=== PATIENT | male | born 1930 | race Caucasian/White ===

== ENCOUNTER 2018-01-24 09:36 | Observation (INO) | payer MEDICARE, OTHER ==
--- NOTE | 2018-01-24 11:18 | RAD ---
Indication: RIGHT ankle pain post fall. Deformity. Comparison: No relevant prior exams available on the [facility] PACS for comparison. Technique: AP, mortise, and lateral views RIGHT ankle. Report: Oblique fracture through the distal metaphysis of the fibula terminating inferiorly at the level of the ankle mortise. Mild apex medial angulation. Horizontal avulsion fracture of the medial malleolus with approximate 0.8 cm inferior and lateral displacement of the avulsed fragment from the dominant tibia. Associated intra-articular fracture at the posterior lateral tibial plafond. Widening of the ankle mortise medially. Diffuse soft tissue swelling and tenting of the skin at the medial malleolus. No subcutaneous emphysema evident to confirm a compound/open fracture. IMPRESSION: Unstable Britton type B3 fracture pattern.
[2018-01-24] MEDS ORDERED: fentaNYL* 50 MCG/ML 2 ML VIAL (100 MCG VIAL) IV SLOW PU ONE (11:23)
[2018-01-24] MEDS ORDERED: Lidocaine 1% INJ* 10 MG/ML 30 ML SDV ONE (12:43)
--- NOTE | 2018-01-24 12:43 | RAD ---
Indication: Fracture dislocation RIGHT ankle. Britton type B 3 based on radiographs. Comparison: 1039 hours radiographs of the same date. Technique: Noncontrast CT RIGHT ankle. Multiplanar reformation. Report: Britton type B 3 fracture pattern as described on radiographs of the same date. Up to 0.7 cm posterior and 0.5 cm lateral displacement of the fibular fracture fragment as well as foreshortening due to impaction. 0.7 cm inferolateral displacement of the horizontal avulsion fracture of the medial malleolus. Mildly comminuted and impacted intra-articular fracture at the posterior lateral margin of the tibial plafond results in up to 1 cm AP articular surface discontinuity. The tibialis posterior tendon is subluxed into the medial peripheral margin of the coronal oriented fracture at the posterior margin of the tibial plafond. Talocrural joint small lipohemarthrosis with fluid fluid level. No additional fractures evident within the [id number]. Clarke images saved on the [facility] PACS. IMPRESSION: 1. Britton type B3 fracture. 2. The tibialis posterior tendon is subluxed into the medial peripheral margin of the coronal oriented fracture at the posterior margin of the tibial plafond.
--- NOTE | 2018-01-24 15:49 | RAD ---
INDICATION: Right fracture right ankle COMPARISON: January 24, 2018 TECHNIQUE: AP, lateral, and oblique views were obtained. FINDINGS: There is a casted fracture of the right ankle. There is an apparent trimalleolar fracture. There is lateral subluxation of the ankle mortise and tilting. The bony detail is obscured in part by the casting material. IMPRESSION: ANKLE FRACTURES DESCRIBED WITH LATERAL SUBLUXATION OF THE ANKLE MORTISE WITH TILTING
--- NOTE | 2018-01-24 16:28 | RAD ---
INDICATION: Traumatic fracture of the right ankle. COMPARISON: Comparison is made with prior studies from January 24, 2018 including a postreduction study at 1526 hours. TECHNIQUE: 3 views of the right ankle were obtained. FINDINGS: The bones are visualized through a plaster cast limiting much of the bony detail. Again note is made of an oblique intra-articular fracture of the distal fibula. The distal fragment is displaced one cortical diameter lateral relative the proximal fragment. There is a transverse intra-articular fracture of the medial malleolus which is slightly distracted. There is also a fracture of the posterior malleolus. There is mild diffuse widening of the ankle mortise which appears improved from the prior exam. IMPRESSION: TRIMALLEOLAR FRACTURE WITH IMPROVEMENT IN ALIGNMENT AND POSITIONING.
[2018-01-24] MEDS ORDERED: oxyCODONE TAB* 5 MG TAB PO PRN (18:59)
[2018-01-24] MEDS ORDERED: Acetaminophen TAB* 325 MG PO PRN (18:59)
[2018-01-24] MEDS ORDERED: Docusate CAP* 100 MG PO PRN (18:59)
[2018-01-24] MEDS ORDERED: Magnesium Hydroxide LIQ* 30 ML UDC PO PRN (18:59)
[2018-01-24] MEDS ORDERED: Morphine INJ* 2 MG/ML 1 ML CARPUJECT IV PRN (18:59)
[2018-01-24] MEDS ORDERED: oxyCODONE/Acetamin 5/325 MG* TAB PO PRN ×2 (18:59)
[2018-01-24] MEDS ORDERED: diPHENhydraMINE PO* 25 MG PO PRN (18:59)
[2018-01-24] MEDS ORDERED: Triamcinolone 0.5% OINT * 15 GM TUBE TOPICAL PRN (19:10)
[2018-01-24 19:53] LABS: ABS Basophils 0.1 10^3/ul (0-0.2); ABS Eosinophils 0.3 10^3/ul (0-0.6); ABS Lymphocytes 1.4 10^3/ul (1.0-4.8); ABS Monocytes 0.9 10^3/ul (0-0.8); ABS Neutrophils 6.3 10^3/ul (1.5-7.7); ABS Nucleated RBC 0 10^3/ul; Eosinophil % 3.2 % (0-6); Hematocrit 40 % (42-52); Hemoglobin 13.5 g/dl (14.0-18.0); Lymphocyte % 15.3 % (25-47); Mean Corpuscular HGB Conc 34 g/dl (31-36); Mean Corpuscular Hemoglobin 31 pg (27-31); Mean Corpuscular Volume 90 fL (80-94); Mean Platelet Volume 7 um3 (7.4-10.4); Nucleated Red Blood Cells % 0; Platelet Count 204 10^3/ul (150-450); Red Blood Count 4.42 10^6/ul (4.0-5.4); Red Cell Distribution Width 14 % (10.5-15); White Blood Count 8.9 10^3/ul (3.5-10.8)
[2018-01-24 20:08] LABS: INR 0.97 (0.77-1.02)
[2018-01-24 20:14] LABS: EGFR Non-African American 63.6 (>60)
--- NOTE | 2018-01-24 21:26 | HP ---
TWO ADDENDUMS INCLUDED ON THIS REPORT Admission H&P DATE OF SERVICE/ ADMISSION: 01/24/18 ATTENDING PROVIDER: Dr. Urban Harris* (dictated by MASSIEL Verma). PCP: Dr JAMES QUEEN CHIEF COMPLAINT: Right ankle pain. HISTORY OF PRESENT ILLNESS: Mr. Del Toro is an 87-year-old male who presented to the emergency room this morning with right ankle pain and obvious deformity after falling on ice at 9:15 this morning. The patient was walking outside his home to his car when he fell due to slipping on ice. His ankle is painful with movement/ manipulation but is not otherwise. He does not have pain elsewhere and he was unable to get up the fall and he was unable to get up to ambulate. Prior to and after fall he did not have chest pain, shortness of breath, headache, change in vision, or dizziness. He did not hit his head when he fell. He did not have a loss of consciousness. The emergency room has attempted reduction and placed a splint. The patient has never had heart attack or stroke. He takes aggrenox due to a history of amaurosis fugax. He has had surgery in the past which he tolerated well. Please note that he has a family history ( father) of malignant hyperthermia. He has no known history of blood clots. PAST MENIDAL HISTORY: hyperlipidemia, Alzheimers, amaurosis fugax PAST SURGICAL HISTORY: Cataracts, melanoma, lymph node surgery. The patient with no personal history of malignant hyperthermia ALLERGIES: No known drug allergies. FAMILY HISTORY: Father of malignant hyperthermia. SOCIAL HISTORY: Alcohol use, none. Smoking status, former smoker. Substance abuse, none. The patient lives independently at [facility] with his . No aide or nursing care is provided on a regular basis. He generally is active outside of the home and walks without an assistive device. 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 REVIEW OF SYSTEMS: General: Denies fever or chills. Head: No headache. No acute changes in vision or hearing. Heart: No chest pain. No irregular beats. Respiratory: No difficulty breathing. No shortness of breath. Abdomen : No abdominal pain. Musculoskeletal: Right lower extremity pain with splinting, but none currently. : No dysuria. Neuro: No decreased sensation, parasthesias or numbness. Aware of memory loss. Psych: confirms depression. Skin: No reported open fracture. No bruising. No lacerations. No abrasions. Hematology: no history of blood clots. Takes Aggrenox. PHYSICAL EXAM: Vital Signs: Blood pressure 132/53, oxygen 100, pulse rate 55, temperature 96.7. General: The patient is well-appearing. He is in no acute distress. HEENT: Head: Normocephalic, atraumatic. Eyes: EOMI. Vision and hearing is grossly normal. Respiratory: Lungs CTA BL .Regular rate and effort of breathing. Cardio: S1S2. abd: Bowel sounds normoactive. Nontender to palpation, no obvious masses. Musculoskeletal: Right lower extremity is in a splint which was removed to perform a repeat reduction. Ankle was obviously deformed. No open fracture seen. No skin breakdown. Able to wiggle right toes. The patient had no tenderness of bilateral hips ,upper leg or knee. He tolerates flexion and extension at bilateral hips and knees well. Left lower leg and ankle nontender to palpation. Moves upper extremities well without tenderness to palpation. He has no tenderness over midline cervical spine. Neuro: Sensation is intact to light touch throughout the right lower extremity. Skin: no abrasions, lacerations, ecchymosis or skin breakdown over fracture site. Alert and oriented x 3 though does ask the same question several times over, with no memory of previously asking. Vascular: RLE DP 2+, PT 1+ and capillary refill less than two seconds distally. DIAGNOSTIC STUDIES X-rays of the right ankle were obtained and independently interpreted and show a trimalleolar ankle fracture dislocation ASSESSMENT: Right trimalleolar ankle fracture dislocation. PLAN: Resume regular diet. Patient admitted to [facility] as Anur[facility] Cook, Anurag unable to provide bed at long-term facility at this time. Discussed this patient with his PCP Dr James Queen who will see him tomorrow morning. She is in agreement with putting him on heparin 5000 units every 12 hours as well as keeping him on the Aggrenox. Dr Queen kindly assisted in providing patients medical history, medications. a plan for OR Sunday with Dr. Mathis for right ankle fracture ORIF. MASSIEL GALICIA [id number]/CPS #: [id number]/CPS #: [id number]/CPS #: [id number] Attending addendum: I personally saw Mr. Del Toro. I performed the history and physical examination myself. I agree with the above noted findings as outlined by Ayana Marin. 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 We discussed the diagnosis and prognosis at length. We discussed the importance of a closed reduction given the skin tenting medially. We discussed the risks and benefits, and I obtained verbal consent for a hematoma block and closed reduction of the ankle. Under sterile conditionsI injected 5 cc of 1% plain lidocaine into the right tibiotalar joint. There were no complications, and this provided great pain control. I then performed a closed reduction of the ankle and application of a short-leg splint. I ended up having to redo the reduction and splinting a second time as there was still some joint incongruity after the first time. After the second reduction it was well aligned in the splint. He was admitted to our service with a plan for the OR 01/28/[address] Mathis. Urban Harris MD [facility]ITALFritz
--- NOTE | 2018-01-24 21:50 | ED ---
Juan Guillory Julia, scribed for Chevy Barfield MD on 01/24/18 at 1010 . Lower Extremity - HPI Summary HPI Summary: This patient is a 87 year [facility] s/p fall on ice at 09:15 this morning. Patient denies right ankle pain, or injury elsewhere. He states he only felt pain when he attempted to relocate his ankle prior to EMS arrival. - History of Current Complaint Chief Complaint: EDExtremityLower Stated Complaint: POSSIBLE RIGHT ANKLE FRACTURE Time Seen by Provider: 01/24/18 09:58 Hx Obtained From: Patient Mechanism Of Injury: Fall From A Standing Position Onset of Pain: Prior to Arrival Onset/Duration: Resolved Pain Intensity: 0 Pain Scale Used: 0-10 Numeric Location: Is Discrete @ - r ankle Associated Signs And Symptoms: Positive: Negative Able to Bear Weight: No - Allergies/Home Medications Allergies/Adverse Reactions: Allergies Allergy/AdvReac Type Severity Reaction Status Date / Time No Known Allergies Allergy Verified 02/16/13 10:50 Home Medications: Home Medications ARIPiprazole TAB* [Abilify 2 MG TAB*] 1 mg PO DAILY 01/24/18 [History Confirmed 01/24/18] Atorvastatin* [Lipitor*] 10 mg PO DAILY 01/24/18 [History Confirmed 01/24/18] Bupropion XL* [Wellbutrin XL *] 150 mg PO DAILY 01/24/18 [History Confirmed ] Carbamide Peroxide 6.5% OTIC* [DEBROX 6.5% Otic*] 5 - 10 drop BOTH EARS BID [History Confirmed 01/24/18] Cyanocobalamin TAB* [Vitamin B12 TAB*] 1,000 mcg PO DAILY 01/24/18 [History Confirmed 01/24/18] Docusate CAP* [Colace Cap*] 100 mg PO DAILY 01/24/18 [History Confirmed 01/24/18 ] Triamcinolone 0.5% CREAM(NF) [Triamcinolone 0.5% CREAM*] 1 applic TOPICAL BID PRN 01/24/18 [History Confirmed 01/24/18] PMH/Surg Hx/FS Hx/Imm Hx Endocrine/Hematology History: Denies: Hx Diabetes Cardiovascular History: Reports: Hx Angina, Hx Hypercholesterolemia, Hx Hypertension Denies: Hx Coronary Artery Disease, Hx Myocardial Infarction, Hx Pacemaker/ ICD Respiratory History: Denies: Hx Asthma, Hx Chronic Obstructive Pulmonary Disease (COPD) Sensory History: Denies: Hx Hearing Aid Psychiatric History: Denies: Hx Panic Disorder - Surgical History Surgery Procedure, Year, and Place: LYMPH NODE,MELANOMA;CATARACTS BOTH Infectious Disease History: No Infectious Disease History: Denies: Traveled Outside the [place] in Last 30 Days - Social History Alcohol Use: None Substance Use Type: Reports: None Smoking Status (MU): Former Smoker Review of Systems Constitutional: Negative Negative: Myalgia All Other Systems Reviewed And Are Negative: Yes Physical Exam - Summary Physical Exam Summary: Appearance: The patient is well-nourished in no acute distress and in no acute pain. Skin: The skin is warm and dry and skin color reflects adequate perfusion. HEENT: The head is normocephalic and atraumatic. The pupils are equal and reactive. The conjunctivae are clear and without drainage. Nares are patent and without drainage. Mouth reveals moist mucous membranes and the throat is without erythema and exudate. The external ears are intact. The ear canals are patent and without drainage. The tympanic membranes are intact. Neck: the neck is supple with full range of motion and non-tender. There are no carotid bruits. There is no neck vein distension. Respiratory: Chest is non-tender. Lungs are clear to auscultation and breath sounds are symmetrical and equal. Cardiovascular: Heart is regular rate and rhythm. There is no murmur or rub auscultated. There is no peripheral edema and pulses are symmetrical and equal , however R dorsalis pedis pulse is undetectable. Abdomen: The abdomen is soft and non-tender. There are normal bowel sounds heard in all four quadrants and there is no organomegaly palpated. Musculoskeletal: There is no back tenderness noted. The right ankle has obvious deformity. There is skin tinting to the medial aspect of the right ankle. R ankle capillary refill oftwo seconds. Dorsalis pedis pulse is undetectable. Neurological: Patient is alert and oriented to person, place and time. The patient has symmetrical motor strength in all four extremities. Cranial nerves are grossly intact. Deep tendon reflexes are symmetrical and equal in all four extremities. Psychiatric: The patient has an appropriate affect and does not exhibit any anxiety or depression. Triage Information Reviewed: Yes Vital Signs On Initial Exam: Initial Vitals Temp Pulse Resp BP Pulse Ox 96.7 F 51 18 106/53 100 01/24/18 09:42 01/24/18 09:42 01/24/18 09:42 01/24/18 09:42 01/24/18 09:42 Vital Signs Reviewed: Yes Procedures - Procedure Summary Procedure Summary: Right ankle was reduced with good capillary refill and pulses. An XR of the right ankle s/p reduction reveals lateral subluxation of the ankle mortise with tilting. The joint was reduced for a second time and an XR reveals a trimalleolar fracture with improved alignment. - Splinting Location: R ankle Hand-Made Type: orthoglass Pre-Proc Neuro Vasc Exam: abnormal Post-Proc Neuro Vasc Exam: normal - Joint Reduction Joint Reduction Site: ankle (R) Post Joint Reduction Film: joint not reduced - with good pulses and cap refill Diagnostics - Vital Signs Vital Signs Temp Pulse Resp BP Pulse Ox 01/24/18 09:42 96.7 F 51 18 106/53 100 - Laboratory Result Diagrams: 01/24/18 19:45 01/24/18 19:45 Lab Statement: Any lab studies that have been ordered have been reviewed, and results considered in the medical decision making process. - Radiology R Ankle XR Radiology Interpretation Completed By: Radiologist - Unstable Britton type B3 fracture pattern. ED Physician has reviewed this report. R Ankle 2 Radiology Interpretation Completed By: Radiologist - ANKLE FRACTURES DESCRIBED WITH LATERAL SUBLUXATION OF THE ANKLE MORTISE WITH TILTING. ED Physician has reviewed this report. R Ankle 3 Radiology Interpretation Completed By: Radiologist - TRIMALLEOLAR FRACTURE WITH IMPROVEMENT IN ALIGNMENT AND POSITIONING. ED Physician has reviewed this report. - CT R Ankle CT CT Interpretation Completed By: Radiologist - 1. Britton type B3 fracture. 2. The tibialis posterior tendon is subluxed into the medial peripheral margin of the coronal oriented fracture at the posterior margin of the tibial plafond. ED Physician has reviewed this report. Lower Extremity Course/Dx - Course Course Of Treatment: Mr. Del Toro fell on the ice and presented with an obvious ankle deformity. He had some skin tenting medially but good cap refill and xray showed a trimalleolar fracture dislocation. I spoke with ortho who requested that I reduce him and splint him and get a CT. He was given fentanyl for pain and reduced easily. CT showed some remaining subluxation and ortho came and took care of him. Ultimately, they admitted him for surgery tomorrow. - Diagnoses Provider Diagnoses: Closed trimalleolar fracture of ankle, Dislocation of ankle, right, closed - Physician Notifications Discussed Care Of Patient With: Urban Harris - orthopedist Time Discussed With Above Provider: 11:12 Instructed by Provider To: Other - He instructed to reduce and splint ankle, and to get a CT scan to determine if patient will need surgery today. He saw patient in [place] and changed splint. Dr. Harris agrees to admit this patient tonight for surgery tomorrow morning. Discharge - Discharge Plan Condition: Stable Disposition: ADMITTED TO [facility] The documentation as recorded by the Juan lopez Julia accurately reflects the service I personally performed and the decisions made by me, Chevy Barfield MD.
[2018-01-24] MEDS: Dipyridamole/Aspirin 25/200* CAP.ER PO SCH (22:32)
[2018-01-24] MEDS: Heparin VIAL(*) 5000 UNITS/ML VIAL (FIVE THOUSAND) SUBCUT SCH (22:32)
[2018-01-24] MEDS: Magnesium Hydroxide LIQ* 30 ML UDC PO SCH (22:33)
--- NOTE | 2018-01-24 23:41 | HP ---
ADMISSION HISTORY AND PHYSICAL: ADDENDUM: I did talk with Dr. Geno Marroquin, his primary care provider who states that he had amaurosis fugax in 2008, hence being on Aggrenox. PLAN: Dr. Geno Marroquin will come and see him in the morning. She is in agreement with putting him on heparin 5000 units every 12 hours as well as keeping him on the Aggrenox. I did review his medication list with her as well. The only unsurety is that we are still waiting on the medication list from [facility] as whether he takes 80 mg of Prozac daily. I will hold this medication for now. If we found that that he is on it, then we can add it in. MASSIEL GALICIA [id number]/CPS #: [id number] MTDD
[2018-01-25 06:00] LABS: Hematocrit 36 % (42-52); Hemoglobin 12.4 g/dl (14.0-18.0); Mean Platelet Volume 7 um3 (7.4-10.4); Platelet Count 209 10^3/ul (150-450)
[2018-01-25 06:12] LABS: EGFR Non-African American 85.7 (>60)
--- NOTE | 2018-01-25 08:46 | PN ---
Progress Note - Progress Note Date of Service: 01/25/18 SOAP: Subjective: 87 y/o male s/p fall 01/24 with Britton fx R ankle. patient states comfortable at rest, + pain with movement. answered questions re: surgery, driving. VSS , afebrile overnight. Objective: General- Well appearing, NAD, AO resting in bed comfortably, at bedside. MSK- RLE- splint in place, toes pink, warm, + ROM, + blanching. no indurtion , swelling above splint. Vital Signs Temp 98.7 F 01/25/18 07:54 Pulse 68 01/25/18 07:54 Resp 16 01/25/18 08:00 BP 145/59 01/25/18 07:54 Pulse Ox 98 01/25/18 07:54 Intake & Output 01/24/18 01/25/18 01/25/18 18:59 06:59 18:59 Intake Total 500 Output Total 550 Balance -50 Weight 68.039 kg 68.039 kg Intake: Oral 500 Output: Urine 550 Assessment: Stable Britton fx R ankle Plan: - DVT prophylaxis- heparin, d/c aggrenox for surgery - PT/ OT Post-op, return to [facility] - H&H - stable - MEdical clearance by DR. Marroquin - SUrgery w Dr. Mathis on Sunday, NPOp [place] sunday Active Medications Generic Name Dose Route Start Last Admin Trade Name Freq PRN Reason Stop Dose Admin Acetaminophen 650 mg 01/24/18 18:59 Tylenol Tab* PO Q4H PRN FEVER/PAIN Aripiprazole 1 mg 01/25/18 09:00 01/25/18 09:11 Abilify Tab* PO 1 mg DAILY VÍCTOR Administration Atorvastatin Calcium 10 mg 01/25/18 09:00 01/25/18 09:10 Lipitor* PO 10 mg DAILY VÍCTOR Administration Bupropion HCl 150 mg 01/25/18 09:00 01/25/18 09:12 Wellbutrin Xl * PO 150 mg DAILY VÍCTOR Administration Protocol Diphenhydramine HCl 25 mg 01/24/18 18:59 Benadryl Po* PO Q6H PRN itching Docusate Sodium 100 mg 01/24/18 18:59 Colace Cap* PO BID PRN CONSTIPATION Docusate Sodium 100 mg 01/25/18 09:00 01/25/18 09:13 Colace Cap* PO 100 mg DAILY VÍCTOR Administration Donepezil HCl 15 mg 01/25/18 09:00 01/25/18 09:08 Aricept Tab* PO 15 mg DAILY VÍCTOR Administration Heparin Sodium (Porcine) 5,000 units 01/24/18 21:00 01/25/18 09:13 Heparin Vial(*) SUBCUT 5,000 units Q12HR VÍCTOR Administration Lactated Ringer's 1,000 mls @ 100 mls/hr 01/24/18 19:00 01/24/18 22:11 Lactated Ringers 1000 Ml Bag* IV 100 mls/hr PER RATE VÍCTOR Administration Magnesium Hydroxide 30 ml 01/24/18 21:00 01/25/18 10:42 Milk Of Magnesia Liq* PO Not Given BID VÍCTOR Magnesium Hydroxide 30 ml 01/24/18 18:59 Milk Of Magnesia Liq* PO Q6H PRN constipation Morphine Sulfate 2 mg 01/24/18 18:59 Morphine Inj (Syringe)* IV Q2H PRN PAIN - BREAKTHROUGH Oxycodone HCl 10 mg 01/24/18 18:59 Roxycodone Tab* PO Q4H PRN PAIN - SEVERE Oxycodone/Acetaminophen 2 tab 01/24/18 18:59 Percocet 5/325 Tab* PO Q4H PRN PAIN - MODERATE Oxycodone/Acetaminophen 1 tab 01/24/18 18:59 Percocet 5/325 Tab* PO Q4H PRN PAIN - MILD Triamcinolone Acetonide 1 applic 01/24/18 19:10 Triamcinolone 0.5% Oint * TOPICAL BID PRN RASH
[2018-01-25] MEDS ORDERED: Atorvastatin* 10 MG TAB PO SCH (09:00)
[2018-01-25] MEDS ORDERED: Donepezil TAB* 5 MG PO SCH (09:00)
[2018-01-25] MEDS ORDERED: Docusate CAP* 100 MG PO SCH (09:00)
[2018-01-25] MEDS ORDERED: BuPROPion XL* 150 MG TAB.XL PO SCH (09:00)
[2018-01-25] MEDS ORDERED: ARIPiprazole TAB* 2 MG PO SCH (09:00)
[2018-01-25] MEDS: Dipyridamole/Aspirin 25/200* CAP.ER PO SCH (09:04)
[2018-01-25] MEDS: Heparin VIAL(*) 5000 UNITS/ML VIAL (FIVE THOUSAND) SUBCUT SCH (09:13)
[2018-01-25] MEDS: Magnesium Hydroxide LIQ* 30 ML UDC PO SCH (10:42)
[2018-01-25 12:15] VITALS: BP 132/45
--- NOTE | 2018-01-25 14:04 | HP ---
ADMISSION HISTORY AND PHYSICAL: ADDENDUM: HISTORY OF PRESENT ILLNESS: The patient is on Aggrenox, but he does not know why he is taking this. He denies ever having a TIA or stroke. PAST MEDICAL HISTORY: Includes hyperlipidemia and forgetfulness. SOCIAL HISTORY: The patient lives independently at [facility]. He walks outside of his home. He and his do not have medical care within the home. PHYSICAL EXAMINATION RESPIRATORY: Lungs clear to auscultation bilaterally. CARDIO: S1, S2, regular rhythm. ABDOMEN: Soft, nontender without masses. No tenderness. VASCULAR: Right lower extremity with 2+ dorsalis pedis, 1+ posterior tibial pulse. Capillary refill is less than 2 seconds distally. PLAN: The patient was, a third time, splinted at this time with successful reduction, with x-ray reviewed by Dr. Harris. His plan is to take the patient to the OR over the weekend. The patient will be admitted under our service. His primary care is Dr. Geno Marroquin, she will come and see him in the morning. I will discuss with Dr. Geno lang why he is on Aggrenox as well as if she would like me to also add heparin for DVT prophylaxis. I have also requested a medication list from [facility]. MASSIEL GALICIA [id number]/CPS #: [id number] MTDD
== END 2018-01-25 14:25 ==
LOC: ED 09:36 → INTOOBSV 18:59 → SSU 18:59
PROVIDERS: ADMIT Orthopaedic Surgery; ATTEND Internal Medicine Geriatric Medicine
DX: S82.851A Displaced trimalleolar fracture of right lower leg, initial encounter for closed fracture (principal); W00.0XXA Fall on same level due to ice and snow, initial encounter; Y92.9 Unspecified place or not applicable; E78.5 Hyperlipidemia, unspecified; G30.9 Alzheimer's disease, unspecified; F02.80 Dementia in other diseases classified elsewhere, unspecified severity, without behavioral disturbance, psychotic disturbance, mood disturbance, and anxiety; G45.3 Amaurosis fugax; Z79.899 Other long term (current) drug therapy
CPT/HCPCS: 27818; 36415; 80048; 85014; 85018; 85025; 85049; 85610; 85730; 96372; 96374; 99283; A9270-GY; G0378; G8978-GP-CK; G8979-GP-CI; G8987-GO-CL; G8988-GO-CI; J1644; J3010

== ENCOUNTER 2018-01-25 13:50 | Inpatient (IN) | payer MEDICARE ==
[2018-01-26] MEDS ORDERED: diPHENhydraMINE PO* 25 MG PO PRN (00:16)
[2018-01-26] MEDS ORDERED: Docusate CAP* 100 MG PO PRN (00:16)
[2018-01-26] MEDS ORDERED: Magnesium Hydroxide LIQ* 30 ML UDC PO PRN (00:17)
[2018-01-26] MEDS ORDERED: Acetaminophen TAB* 325 MG PO PRN (00:17)
[2018-01-26] MEDS ORDERED: oxyCODONE/Acetamin 5/325 MG* TAB PO PRN ×2 (00:17)
[2018-01-26] MEDS: Atorvastatin* 10 MG TAB PO SCH (08:25)
[2018-01-26] MEDS: Donepezil TAB* 5 MG PO SCH (08:25)
[2018-01-26] MEDS: ARIPiprazole TAB* 2 MG PO SCH (08:25)
[2018-01-26] MEDS: Heparin VIAL(*) 5000 UNITS/ML VIAL (FIVE THOUSAND) SUBCUT SCH ×2 (08:27→21:22)
[2018-01-27] MEDS: ARIPiprazole TAB* 2 MG PO SCH (08:55)
[2018-01-27] MEDS: Donepezil TAB* 5 MG PO SCH (08:56)
[2018-01-27] MEDS: Heparin VIAL(*) 5000 UNITS/ML VIAL (FIVE THOUSAND) SUBCUT SCH ×2 (08:58→21:17)
[2018-01-27] MEDS: Atorvastatin* 10 MG TAB PO SCH (08:58)
[2018-01-27 20:01] VITALS: BP 115/50
[2018-01-28] MEDS ORDERED: NS 0.9% 1000 ML* 1,000 ML IV SCH (06:15)
[2018-01-28] MEDS: ARIPiprazole TAB* 2 MG PO SCH (07:42)
[2018-01-28] MEDS: Atorvastatin* 10 MG TAB PO SCH (07:42)
[2018-01-28] MEDS: Donepezil TAB* 5 MG PO SCH (07:42)
[2018-01-28] MEDS: Heparin VIAL(*) 5000 UNITS/ML VIAL (FIVE THOUSAND) SUBCUT SCH (07:43)
[2018-01-28] MEDS ORDERED: Naloxone* 0.4 MG/ML 1 ML VIAL IV PRN (13:26)
--- NOTE | 2018-03-04 14:31 | DS ---
DISCHARGE SUMMARY: DATE OF ADMISSION: 01/25/2018. DATE OF DISCHARGE: 01/28/2018. DISCHARGE DIAGNOSES: 1. Right ankle dislocated fracture. 2. Alzheimer's disease. 3. History of transient ischemic attack/amaurosis fugax. 4. Hyperlipidemia. 5. Suppression. HISTORY OF PRESENT ILLNESS: Hayden Del Toro is an 87-year-old man admitted with an ankle fracture. Please see the dictated admission note for details of the present illness, past medical history, family history, social and personal history, review of systems, and physical examination. LABORATORY DATA: In the EMR from initial admission. HOSPITAL COURSE: The patient had been admitted initially on 01/24/18. The plan was to have him stay in the hospital over the weekend until surgery could be performed on 01/28/18. He was admitted under status of "[facility] guest." He exhibited some confusion, which was intermittent. He had no complaints other than his ankle pain. He remained in the hospital until 01/28/18 under the guest status until he underwent surgery on 01/28/18 and then he was made an inpatient again. No laboratory was done during this admission. [id number]/[facility] #: [id number] FAITH
== END 2018-01-28 08:19 | disposition short-term general hospital (02) | DRG 563 ==
LOC: INTOOBSV 14:25 → SSU 14:25 → OBSVTOIN 14:29
PROVIDERS: ADMIT Internal Medicine Geriatric Medicine; ATTEND Internal Medicine Geriatric Medicine
PROC: 2W3QX1Z Immobilization of Right Lower Leg using Splint (ICD-10-PCS; principal; 2018-01-25)
PROC: 0QSGXZZ Reposition Right Tibia, External Approach (ICD-10-PCS; 2018-01-25)
DX: S82.851A Displaced trimalleolar fracture of right lower leg, initial encounter for closed fracture (principal); G45.3 Amaurosis fugax; G30.9 Alzheimer's disease, unspecified; E78.5 Hyperlipidemia, unspecified; F02.80 Dementia in other diseases classified elsewhere, unspecified severity, without behavioral disturbance, psychotic disturbance, mood disturbance, and anxiety; F32.9 Major depressive disorder, single episode, unspecified; W00.0XXA Fall on same level due to ice and snow, initial encounter; Y92.008 Other place in unspecified non-institutional (private) residence as the place of occurrence of the external cause; Z84.89 Family history of other specified conditions; Z98.42 Cataract extraction status, left eye; Z98.41 Cataract extraction status, right eye; Z85.820 Personal history of malignant melanoma of skin; Z87.891 Personal history of nicotine dependence
CPT/HCPCS: A9270-GY; J1644

== ENCOUNTER 2018-01-28 08:18 | Inpatient (IN) | payer MEDICARE ==
[2018-01-28] MEDS ORDERED: diPHENhydraMINE PO* 25 MG PO PRN (08:57)
[2018-01-28] MEDS ORDERED: Ondansetron INJ* 2 MG/ML VIAL IV PRN (08:57)
[2018-01-28] MEDS ORDERED: Acetaminophen TAB* 325 MG PO PRN (08:57)
[2018-01-28] MEDS ORDERED: Ondansetron TAB* 4 MG PO PRN (08:57)
[2018-01-28] MEDS ORDERED: Docusate CAP* 100 MG PO PRN (09:03)
[2018-01-28] MEDS ORDERED: Magnesium Hydroxide LIQ* 30 ML UDC PO PRN (09:04)
[2018-01-28] MEDS ORDERED: Midazolam* 1 MG/ML 2 ML VIAL (2 MG) ONE (10:57)
[2018-01-28] MEDS ORDERED: ceFAZolin 2 GM (*##) 2 GM/100 ML BAG USE CEFA2SOL IVPB ONE (11:05)
[2018-01-28] MEDS ORDERED: Phenylephrine INJ* 10 MG/ML 1 ML VIAL (10 MG) ONE (12:08)
[2018-01-28] MEDS ORDERED: EPHEDrine (Pressors)* 50 MG/ML VIAL ONE (12:08)
--- NOTE | 2018-01-28 14:18 | RAD ---
CPT II Codes: 6045F INDICATION: Bimalleolar fracture right ankle, traumatic Fluoroscopic services provided for referring physician. Approximately 3.2 seconds of fluoroscopy time was used. 2 spot images demonstrates internal fixation of bimalleolar fracture. IMPRESSION: Fluoroscopic services provided for referring physician for internal fixation bimalleolar fracture of the right ankle.
[2018-01-28] MEDS: oxyCODONE/Acetamin 5/325 MG* TAB PO PRN ×2 (14:49→18:47)
[2018-01-28] MEDS: D5W 1/2 NS 1000 ML BAG* 1,000 ML IV SCH (15:06)
[2018-01-29] MEDS: D5W 1/2 NS 1000 ML BAG* 1,000 ML IV SCH (01:49)
[2018-01-29] MEDS ORDERED: Heparin VIAL(*) 5000 UNITS/ML VIAL (FIVE THOUSAND) SUBCUT SCH (09:00)
[2018-01-29] MEDS ORDERED: Atorvastatin* 10 MG TAB PO SCH (09:00)
[2018-01-29] MEDS ORDERED: ARIPiprazole TAB* 2 MG PO SCH (09:00)
--- NOTE | 2018-01-29 11:49 | DS ---
DATE OF ADMISSION: 01/24/2018. DATE OF DISCHARGE: 01/29/2018. ATTENDING PROVIDER: Dr. Urban Harris and Dr. Lucius Mathis * (dictated by MASSIEL Verma). PRIMARY CARE PHYSICIAN: Dr. Geno Marroquin who was also following this patient during his stay. HISTORY: Mr. Del Toro is an 87-year-old male who presented to the emergency room on 01/24/2018 with a right ankle fracture after falling on the ice. This seemed to be a mechanical fall. Ankle was reduced and splinted in the emergency room. The patient was admitted as a [facility] Guest and the decision for surgery later within the week was determined. HOSPITAL COURSE: Patient Hayden Del Toro was admitted to [facility] on 01/24/2018 with a right ankle fracture that was reduced in the emergency room by Dr. Urban Harris. He was admitted as a [facility] Guest and he was taken to the operating room by Dr. Lucius Mathis on 01/28/2018 for a right ankle ORIF which was completed without complication. Postoperative day one, the patient is feeling well. He denies any chest pain or shortness of breath. He denies any dizziness. He denies any right ankle pain. His only concern is being able to get out of bed on his own which he does not feel able to do at this time. On exam, the patient is wearing a splint on this right leg. He is able to wiggle his toes distally. Capillary refill is less than two seconds. He has sensation intake distally. There is no erythema proximal to distal to the splint. He is able to flex and extend at the knee, aside from the complaint that the splint is quite heavy. Labs on January 25, hemoglobin 12.4, hematocrit 36. Vital signs on January 29, temperature 98.5, pulse 75, respiratory rate 16, oxygen saturation 98, blood pressure 134/51. The patient seemed to be medically and orthopedically stable for discharge home. He will be discharged to [facility]. DISCHARGE MEDICATIONS: The patient will resume all home medications, including Aggrenox. New medications include: 1. Tylenol 325 mg p.o. q.6 hours prn for pain or fever, not to exceed 4,000 mg per day from all sources. 2. Docusate 100 mg p.o. b.i.d. prn constipation. 3. Percocet 5/325 one to two tabs every 4 hours as needed for pain, max daily dose of 8. DISCHARGE PLAN: The patient will be nonweightbearing on the right lower extremity. He will keep the splint clean, dry, and intact. He will call the Orthopedic office for any increased drainage, redness, increased pain or fever, and go to the emergency room with shortness of breath or chest pain. His diet will be his regular diet which he may resume at this time. Increase fiber and fluids to prevent constipation. Take stool softeners. Call the office if no bowel motion within 48 hours. Pain control with Percocet 5/325 one to two tabs every four to six hours, max of eight tabs per day. Restart your home medications, including Aggrenox. Follow-up in our office with Dr. Mathis in one week, sooner with any questions or concerns. Call for an appointment. MASSIEL GALICIA [id number]/[facility] #: [id number] FAITH
[2018-01-29 12:25] VITALS: BP 135/47
--- NOTE | 2018-01-29 13:03 | PN ---
Progress Note - Progress Note Date of Service: 01/29/18 SOAP: Subjective: []Patient seen OOB in chair with his present. He has no pain and no numbness of his RLE. He denies CP, SOB, dizziness or nausea. His only concern is ability to get out of bed on his own, due to weight of splint on right leg. Objective: [] Vital Signs Temp 98.2 F 01/29/18 11:49 Pulse 82 01/29/18 11:49 Resp 16 01/29/18 11:49 BP 135/47 01/29/18 11:49 Pulse Ox 99 01/29/18 11:49 Intake & Output 01/28/18 01/29/18 01/29/18 18:59 06:59 18:59 Intake Total 1227 1448 320 Output Total 300 725 200 Balance 927 723 120 Weight 150 lb Intake: IV Fluids 650 988 D5W 1/2 NS 988 LR 650 IVPB 337 NS (0.9%) 337 Oral 240 460 320 Output: Urine 300 725 200 Other: # Bowel Movements 1 Estimated Stool Amount Large General: Well appearing, NAD RLE: Splint CDI. Toes with sensation intact to light touch, capillary refill less than two seconds distally, able to wiggle toes. No erythema proximally. Thigh is soft and nontender. LLE: Calf supple and nontender without erythema or edema. Assessment: []SP ORIF right ankle Plan: []NWB RLE Restart home medications including aggrenox Follow up with Dr Mathis within 7-10 days
--- NOTE | 2018-01-29 14:13 | OP ---
DATE OF OPERATION: 01/28/18 - ROOM #337 DATE OF : 34 SURGEON: Lucius Mathis MD. PRESIDENT CEO & FOUNDER: MASSIEL Ivey. PRE-OP DIAGNOSIS: Right trimalleolar ankle fracture. POST-OP DIAGNOSIS: Right trimalleolar ankle fracture. OPERATIVE PROCEDURE: Open reduction and internal fixation right trimalleolar ankle fracture. DESCRIPTION OF PROCEDURE: The patient was taken to the operating room with spinal anesthetic and rolled on his left lateral decubitus side. We made an extensile incision posterior to the peroneals so that we could approach the posterior ankle recess. The peroneal tendons were reflected laterally and anteriorly to allow visualization of the back aspect of the fibula which was plated. After anatomic reduction with a crab claw clamp with an 8-hole 3.5-mm recon plate. The lateral view showed the posterior malleolar fragment well reduced, so with my thumb pushing it down into an anatomic position as well. A posterior to anterior lag screw was placed with a 3.5 cortical screw with a washer. This wound then was serially irrigated thoroughly and closed with Vicryl subcu and souleymane for the skin. We then rolled him to a supine position where a 3-cm longitudinal incision was made over the medial malleolus. The medial malleolus was manipulated into a reduced position, held with a point reduction clamp while a 4.0 mm cannulated screw was driven across the fracture. This was a 40-mm long screw. Good alignment was obtained and verified with C-arm. We then closed this medial wound with Vicryl and souleymane and a compression dressing. Plaster splint applied. [id number]/[facility] #: [id number] MTDD
[2018-01-29] MEDS ORDERED: Donepezil TAB* 5 MG PO SCH (21:00)
--- NOTE | 2018-02-03 00:50 | HP ---
HISTORY AND PHYSICAL: DATE OF ADMISSION: 01/28/18 ATTENDING PROVIDER: Dr. Urban Harris. * (DICTATED BY MASSIEL MALIK) PRIMARY CARE PHYSICIAN: Dr. Geno Marroquin. CHIEF COMPLAINT: Trimalleolar ankle fracture with dislocation. HISTORY OF PRESENT ILLNESS: The patient is a pleasant 87-year-old gentleman who was recently admitted to [facility] under [facility] guest status on 01/24/18. Please see full H and P dictated by Ayana Marin on this date with regards to the patient's full history. In brief, the patient was seen in the emergency room on 01/25/18 after falling and was noted on x-rays to have a trimalleolar fracture. He is a resident at the [facility] and was admitted to [facility] on a guest status as they were unable to provide care for him at the [facility]. He is to undergo ORIF by Dr. Harris on 01/28/18. PAST MEDICAL HISTORY: 1. Hyperlipidemia. 2. Alzheimer's. 3. Amaurosis fugax. PAST SURGICAL HISTORY: 1. Cataracts. 2. Melanoma resection. 3. Lymph node surgery. ALLERGIES: No known drug allergies. FAMILY HISTORY: Father of malignant hyperthermia. PHYSICAL EXAMINATION GENERAL: Well appearing, no acute distress, alert and oriented, lying comfortably in bed with no acute distress. VITAL SIGNS: Temperature 99.5, pulse rate 80, respirations 18, oxygen saturation 100% on room air, blood pressure 157/66. MUSCULOSKELETAL: Right ankle in splint without discomfort and is unable to move toes. Toes are warm and pink. No induration noted above splint. ASSESSMENT: Trimalleolar fracture. PLAN: The patient is to undergo ORIF by Dr. Harris on 01/28/18. He is being followed by his primary care doctor, Geno Marroquin. We are holding his Aggrenox currently for bleeding risk and we will restart this per Dr. Harris's recommendations. The patient had no further questions or concerns with regards to this procedure. MASSIEL MALIK [id number]/[facility] #: [id number] [facility]
== END 2018-01-29 13:50 | DRG 493 ==
LOC: SSU 08:19
PROVIDERS: ADMIT Orthopaedic Surgery; ATTEND Orthopaedic Surgery
PROC: 0QSG04Z Reposition Right Tibia with Internal Fixation Device, Open Approach (ICD-10-PCS; principal; 2018-01-28 12:00)
DX: S82.851A Displaced trimalleolar fracture of right lower leg, initial encounter for closed fracture (principal); G45.3 Amaurosis fugax; G30.9 Alzheimer's disease, unspecified; E53.8 Deficiency of other specified B group vitamins; F02.80 Dementia in other diseases classified elsewhere, unspecified severity, without behavioral disturbance, psychotic disturbance, mood disturbance, and anxiety; G31.84 Mild cognitive impairment of uncertain or unknown etiology; W00.0XXA Fall on same level due to ice and snow, initial encounter; L30.9 Dermatitis, unspecified; L81.9 Disorder of pigmentation, unspecified; F32.9 Major depressive disorder, single episode, unspecified; M54.5 Low back pain; L40.9 Psoriasis, unspecified; E78.00 Pure hypercholesterolemia, unspecified; I89.0 Lymphedema, not elsewhere classified; H91.93 Unspecified hearing loss, bilateral; I49.3 Ventricular premature depolarization; N52.9 Male erectile dysfunction, unspecified; Y92.9 Unspecified place or not applicable; Z79.01 Long term (current) use of anticoagulants; Z79.899 Other long term (current) drug therapy; E78.5 Hyperlipidemia, unspecified
CPT/HCPCS: 76000; A9270-GY; C1713; C1776; G8978-GP-CL; G8979-GP-CI; J1644; J2250

== ENCOUNTER 2018-09-11 15:56 | Inpatient (IN) | payer MEDICARE ==
--- NOTE | 2018-09-11 17:28 | RAD ---
Indication: Pain post fall. Visible deformity at the level of the LEFT humerus. Comparison: February 13, 2014 Technique: Sitting AP chest Report: No focal pulmonary lesion, compelling alveolar consolidation, pleural effusion, pneumothorax. Upper normal heart size. Unremarkable central pulmonary vasculature. Fracture of the LEFT humerus partially visualized. IMPRESSION: #. No evidence for acute intrathoracic disease. #. Fracture of the LEFT humerus; refer to dedicated humerus report for full description.
--- NOTE | 2018-09-11 17:31 | RAD ---
Indication: Fall with visible deformity of the LEFT upper arm. Comparison: No relevant prior exams available on the [facility] PACS for comparison. Technique: AP and lateral views LEFT humerus. AP and scapular Y views of the LEFT shoulder. REPORT AND IMPRESSION: #. Comminuted segmental fracture of the LEFT humerus extending from the surgical neck through the distal diaphysis with significant displacement and approximate 45 degrees apex lateral angulation. Foreshortening of the upper arm and fusiform soft tissue swelling. No subcutaneous emphysema evident. #. The humeral head remains located at the glenoid fossa. Normal acromioclavicular joint alignment. 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
--- NOTE | 2018-09-11 17:31 | RAD ---
Indication: Fall with visible deformity of the LEFT upper arm. Comparison: No relevant prior exams available on the [facility] PACS for comparison. Technique: AP and lateral views LEFT humerus. AP and scapular Y views of the LEFT shoulder. REPORT AND IMPRESSION: #. Comminuted segmental fracture of the LEFT humerus extending from the surgical neck through the distal diaphysis with significant displacement and approximate 45 degrees apex lateral angulation. Foreshortening of the upper arm and fusiform soft tissue swelling. No subcutaneous emphysema evident. #. The humeral head remains located at the glenoid fossa. Normal acromioclavicular joint alignment. 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
--- NOTE | 2018-09-11 17:33 | RAD ---
Indication: Fall. LEFT humerus fracture. Comparison: No relevant prior exams available on the [facility] PACS for comparison. Technique: AP pelvis. Report: Normal alignment of the hips as well as the sacroiliac joints and pubic symphysis in the AP projection. No pelvic fracture evident. Unremarkable soft tissue contours. IMPRESSION: #. No radiographic evidence for pelvic fracture.
--- NOTE | 2018-09-11 17:44 | RAD ---
Indication: Fall. LEFT humerus fracture. Comparison: No relevant prior exams available on the [facility] PACS for comparison. Technique: Noncontrast CT vertex of skull through foramen magnum. Report: Moderately severe prominence of the cerebral sulci and moderate prominence of the cerebellar fissures reflecting atrophy. Unremarkable ventricles and basal cisterns. Negative for lau matter white matter obscuration, intra or extra-axial hemorrhage, or mass effect. Unremarkable orbital contents. Negative for calvarial or skull base fracture. Negative for scalp hematoma. IMPRESSION: #. No CT evidence for traumatic brain injury. #. Involutional change.
--- NOTE | 2018-09-11 17:48 | RAD ---
INDICATION: Fall. LEFT humerus fracture. COMPARISON: No relevant prior exams available on the [facility] PACS for comparison. TECHNIQUE: Multidetector CT images foramen magnum to lung apices without contrast. Multiplanar reformation. REPORT: Normal vertebral alignment accounting for exam positioning without spondylolisthesis or subluxation at any level. Negative for cervical vertebral body or posterior element fracture. Negative for paravertebral hematoma. 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 Uncinate process spurring and facet joint osteoarthritis results in moderately severe to severe bilateral foraminal stenosis in the same distribution. IMPRESSION: #. No CT evidence for traumatic cervical spine injury.
--- NOTE | 2018-09-11 17:51 | ED ---
Adult Trauma - HPI Summary HPI Summary: Patient is an 88-year-old male who presents to the emergency department for a left arm injury after a mechanical fall that happened just prior to arrival. Patient states he tripped on the rug and fell forward. He did strike his face but denies LOC. She denies headache, neck pain, chest pain, shortness of breath , abdominal pain. His only complaint is pain to his left arm. He does have baseline of mild dementia. Patient's states he is at his baseline. He lives at home with his . Symptoms are moderate in severity. Patient denies numbness, tingling to left arm. Movement makes symptoms worse. Rest makes symptoms better. - History of Current Complaint Chief Complaint: EDShoulderClaChela Stated Complaint: FALL Time Seen by Provider: 09/11/18 16:35 Hx Obtained From: Patient, Family/Digital Production Operator Pain Intensity: 2 - Additional Pertinent History Primary Care Physician: [id number] - Allergy/Home Medications Allergies/Adverse Reactions: Allergies Allergy/AdvReac Type Severity Reaction Status Date / Time gentamicin [From Garamycin] Allergy Unknown Verified 09/11/18 16:08 Reaction Details simvastatin [From Zocor] Allergy See Comment Verified 09/11/18 16:08 Home Medications: Home Medications Atorvastatin* [Lipitor*] 10 mg PO BEDTIME 09/11/18 [History Confirmed 09/11/18] Ceramides 1,3,6-11 [Cerave] 1 cre TOPICAL BID 09/11/18 [History Confirmed ] Clobetasol Propionate/Emoll [Clobetasol Propionate Emo] 0.05 % TOPICAL BEDTIME PRN 09/11/18 [History Confirmed 09/11/18] Donepezil TAB* [Aricept 5 MG TAB*] 5 mg PO DAILY 09/11/18 [History Confirmed ] Donepezil TAB* [Aricept 5 MG TAB*] 10 mg PO DAILY 09/11/18 [History Confirmed ] Ketoconazole 2 % CREAM (NF) [Nizoral 2% CREAM (NF)] 1 applic TOPICAL DAILY PRN 09/11/18 [History Confirmed 09/11/18] Memantine TAB* [Namenda TAB*] 10 mg PO BEDTIME 09/11/18 [History Confirmed 09/11] Ubidecarenone [Co Q-10] 200 mg PO DAILY 09/11/18 [History Confirmed 09/11/18] Venlafaxine EXT RELEASE CAP* [Effexor Xr CAP*] 37.5 mg PO DAILY 09/11/18 [ History Confirmed 09/11/18] PMH/Surg Hx/FS Hx/Imm Hx Previously Healthy: Yes Endocrine/Hematology History: Denies: Hx Anticoagulant Therapy, Hx Blood Disorders, Hx Blood Transfusions, Hx Bone Marrow Disease, Hx Diabetes, Hx Systemic Lupus Erythematosus, Hx Sickle Cell Disease, Hx Thyroid Disease, Hx Anemia, Hx Unexplained Bleeding Cardiovascular History: Reports: Hx Angina, Hx Hypercholesterolemia, Hx Hypertension Denies: Hx Coronary Artery Disease, Hx Myocardial Infarction, Hx Pacemaker/ ICD Respiratory History: Denies: Hx Asthma, Hx Chronic Obstructive Pulmonary Disease (COPD) GI History: Denies: Hx Gall Bladder Disease, Hx Gastroesophageal Reflux Disease, Hx Hiatal Hernia, Hx Jaundice, Hx Obstructive Bowel, Hx Ileostomy, Hx Pyloric Stenosis, Hx Ulcer History: Denies: Hx Acute Renal Failure, Hx Benign Prostatic Hyperplasia, Hx Chronic Renal Failure, Hx Dialysis, Hx Kidney Infection, Hx Kidney Stones Musculoskeletal History: Reports: Hx Orthopedic Injury - this visit Denies: Hx Arthritis, Hx Back Problems, Hx Bursitis, Hx Congenital Bone Abnormalities, Hx Fibromyalgia, Hx Gout, Hx Osteoporosis, Hx Scoliosis, Hx Tendonitis Sensory History: Reports: Hx Cataracts, Hx Contacts or Glasses, Hx Hearing Aid Opthamlomology History: Reports: Hx Cataracts, Hx Contacts or Glasses Neurological History: Reports: Hx Dementia - Alzheimer's, Other Neuro Impairments/Disorders - Dementia Psychiatric History: Reports: Hx Anxiety, Hx Depression Denies: Hx Attention Deficit Hyperactivity Disorder, Hx Eating Disorder, Hx Panic Disorder, Hx Post Traumatic Stress Disorder, Hx Inpatient Treatment, Hx Community Mental Health Tx, Hx Schizophrenia, Hx Bipolar Disorder, Hx Suicide Attempt, Hx of Violent Episodes Against Others, Hx Substance Abuse, Other Psychiatric Issues/Disorders - Cancer History Cancer Type, Location and Year: Melanoma Hx Radiation Therapy: Yes - Surgical History Surgery Procedure, Year, and Place: LYMPH NODE,MELANOMA;CATARACTS BOTH Hx Anesthesia Reactions: No - Immunization History Date of Influenza Vaccine: 2017 Infectious Disease History: No Infectious Disease History: Denies: Hx Hepatitis, Traveled Outside the [place] in Last 30 Days - Social History Occupation: Retired Lives: With Family Alcohol Use: None Substance Use Type: Reports: None Smoking Status (MU): Former Smoker Amount Used/How Often: 1 ppd Review of Systems Constitutional: Negative Negative: Fever, Chills Negative: Epistaxis Cardiovascular: Negative Negative: Palpitations, Chest Pain Respiratory: Negative Negative: Shortness Of Breath, Cough Gastrointestinal: Negative Negative: Abdominal Pain, Vomiting, Diarrhea Genitourinary: Negative Positive: Other - Left arm pain Positive: Other - abrasion to face Neurological: Negative Negative: Headache, Weakness, Paresthesia, Numbness All Other Systems Reviewed And Are Negative: Yes Physical Exam Triage Information Reviewed: Yes Vital Signs On Initial Exam: Initial Vitals Temp Pulse Resp BP Pulse Ox 98.7 F 53 18 180/76 98 09/11/18 16:00 09/11/18 16:00 09/11/18 16:00 09/11/18 16:00 09/11/18 16:00 Vital Signs Reviewed: Yes Appearance: Positive: Well-Appearing - Pt. lying in bed, obvious deformity to left upper arm. Nontoxic appearing. present. Skin: Positive: Warm, Dry Head/Face: Positive: Other - Superficial abrasion between eye brows. Eyes: Positive: Normal, EOMI Neck: Positive: Supple Respiratory/Lung Sounds: Positive: Clear to Auscultation, Breath Sounds Present Cardiovascular: Positive: Normal, RRR Abdomen Description: Positive: Nontender, Soft Musculoskeletal: Positive: Other - No pain with pelvic rock. Marked edema noted to left upper arm. Over the lateral aspect there is a small, 1 cm, triangular shaped laceration. Good palpable radial pulse. No neurosensory deficits distally. Neurological: Positive: Normal, Alert, Oriented to Person Place, Time, CN Intact II-III Psychiatric: Positive: Affect/Mood Appropriate - Gratz Coma Scale Best Eye Response: 4 - Spontaneous Best Motor Response: 6 - Obeys Commands Best Verbal Response: 5 - Oriented Coma Scale Total: 15 Diagnostics - Vital Signs Vital Signs Temp Pulse Resp BP Pulse Ox 09/11/18 17:17 51 18 100 09/11/18 16:41 52 22 189/84 99 09/11/18 16:12 56 17 192/75 100 09/11/18 16:10 53 15 100 09/11/18 16:00 98.7 F 53 18 180/76 98 - Laboratory Result Diagrams: 09/11/18 17:30 09/11/18 17:30 Lab Statement: Any lab studies that have been ordered have been reviewed, and results considered in the medical decision making process. Adult Trauma Course/Dx - Course Course Of Treatment: Pt. presenting with obvious left arm deformity after a mechanical fall. He is afebrile with stable vital signs. Blood work and imaging was ordered. Patient declines pain medication. ECG done at 1732 shows a sinus bradycardia of 53 bpm, no ST elevation or depression. CT scan of head and neck are negative for acute findings, reading per radiology. Chest and pelvic x-ray negative for acute findings, reading per radiology. Left arm x- ray show a comminuted, displaced midshaft humeral fracture. Orthopedics was consulted, Dr. Em. He feels fx will most likely need surgery. He will see pt. in the ER shortly. Ancef ordered. Tetanus will be updated. I spoke with Dr. Marlow and pt. has been accepted to his service. - Diagnoses Provider Diagnoses: Open humeral fracture Discharge - Sign-Out/Discharge Documenting (check all that apply): Patient Departure - Discharge Plan Condition: Stable Disposition: ADMITTED TO [facility] Referrals: Geno Marroquin MD [Primary Care Provider] - - Billing Disposition and Condition Condition: STABLE Disposition: Admitted to [facility]
[2018-09-11] MEDS ORDERED: ceFAZolin 1 GM ADVAN(*) 1 GM in NS 0.9% 50 ML* 50 ML IVPB ONE (17:52)
[2018-09-11 18:00] LABS: INR 0.9 (0.77-1.02)
[2018-09-11 18:16] LABS: EGFR Non-African American 67.7 (>60)
[2018-09-11] MEDS ORDERED: Tetan/Diph/Pertus SYR(Tdap)* 0.5 ML SYR(BOOSTRIX) use SYR IM ONE (18:19)
[2018-09-11 18:25] LABS: ABS Basophils 0 10^3/ul (0-0.2); ABS Eosinophils 0.2 10^3/ul (0-0.6); ABS Lymphocytes 0.8 10^3/ul (1.0-4.8); ABS Monocytes 0.5 10^3/ul (0-0.8); ABS Neutrophils 8.2 10^3/ul (1.5-7.7); ABS Nucleated RBC 0 10^3/ul; Eosinophil % 2.5 % (0-6); Hematocrit 43 % (42-52); Hemoglobin 13.7 g/dl (14.0-18.0); Lymphocyte % 8.5 % (25-47); Mean Corpuscular HGB Conc 32 g/dl (31-36); Mean Corpuscular Hemoglobin 31 pg (27-31); Mean Corpuscular Volume 96 fL (80-94); Mean Platelet Volume 7.7 um3 (7.4-10.4); Nucleated Red Blood Cells % 0.1; Platelet Count 78 10^3/ul (150-450); Red Blood Count 4.49 10^6/ul (4.00-5.40); Red Cell Distribution Width 15 % (10.5-15); White Blood Count 9.8 10^3/ul (3.5-10.8)
[2018-09-11] MEDS ORDERED: Ondansetron INJ* 2 MG/ML VIAL IV PRN (19:10)
[2018-09-11] MEDS ORDERED: oxyCODONE/Acetamin 5/325 MG* TAB PO PRN (19:10)
[2018-09-11] MEDS ORDERED: Magnesium Hydroxide LIQ* 30 ML UDC PO PRN (19:10)
[2018-09-11] MEDS ORDERED: Acetaminophen TAB* 325 MG PO PRN (19:10)
[2018-09-11] MEDS ORDERED: Al Hydrox/Mg Hydrox/Simet LIQ* 30 ML UDC PO PRN (19:10)
[2018-09-11] MEDS ORDERED: Morphine INJ* 4 MG/ML 1 ML SYRINGE (NEW SYRINGE VERSION) IV PRN (19:10)
[2018-09-11] MEDS ORDERED: ceFAZolin 1 GM in Dextrose (*) 1 GM/50 ML BAG IVPB ONE (19:20)
[2018-09-11] MEDS ORDERED: Morphine INJ* 4 MG/ML 1 ML SYRINGE (NEW SYRINGE VERSION) ONE (19:41)
[2018-09-11] MEDS ORDERED: Dipyridamole/Aspirin 25/200* CAP.ER PO SCH (21:00)
[2018-09-11] MEDS: Docusate CAP* 100 MG PO SCH (21:28)
[2018-09-11] MEDS: Memantine TAB* 10 MG PO SCH (21:28)
[2018-09-11] MEDS: Atorvastatin* 10 MG TAB PO SCH (21:28)
--- NOTE | 2018-09-11 21:29 | RAD ---
EXAM: CT Left Upper Extremity Without Intravenous Contrast, Humerus EXAM DATE/TIME: 09/11/2018 8:30 PM CLINICAL HISTORY: 88 years old, male; Injury or trauma; Fall; Initial encounter; Blunt trauma (contusions or hematomas; Arm, upper; Left; Additional info: Humerus TECHNIQUE: CT of the Left upper extremity without intravenous contrast was performed. Exam focused on the humerus. All CT scans at this facility use at least one of these dose optimization techniques: automated exposure control; mA and/or kV adjustment per patient size (includes targeted exams where dose is matched to clinical indication); or iterative reconstruction. COMPARISON: OT HUM L HUMERUS LEFT 09/11/2018 4:47 PM FINDINGS: Bones/joints: Multipart fracture has diastasis of the humerus with moderate override and medial angulation. There is proximal extension of fracture line to the medial surgical neck of the humerus. Soft tissues: Normal. Other findings: Surrounding infiltrative hemorrhage. IMPRESSION: Multipart fracture diaphysis of the humerus with moderate override and medial angulation. There is proximal extension of fracture line to the medial surgical neck of the humerus. To contact [facility] with a general question: Operations Center - [phone] For direct physician to physician contact: Physician Hotline - [phone] [facility] ([facility] Facility ID #[id number])
[2018-09-11] MEDS: NS 0.9% 1000 ML* 1,000 ML IV SCH (21:33)
[2018-09-11] MEDS ORDERED: Heparin VIAL(*) 5000 UNITS/ML VIAL (FIVE THOUSAND) SUBCUT SCH (22:00)
--- NOTE | 2018-09-11 22:23 | HP ---
CC: Dr. Geno Marroquin * HISTORY AND PHYSICAL: DATE OF ADMISSION: 09/11/18 PRIMARY CARE PROVIDER: Dr. Geno Marroquin. ATTENDING PHYSICIAN: Dr. Umesh Marlow * (dictated by Veda Romero NP). CHIEF COMPLAINT: Mechanical fall with left arm pain. HISTORY OF PRESENT ILLNESS: Mr. Del Toro is an 88-year-old male with past medical history of hyperlipidemia, Alzheimer's, amaurosis fugax, and depression who presented to the emergency room today after sustaining a mechanical fall at home. The patient lives in one of the [facility] at [facility] and reports that he tripped on a rug around 3 p.m. today. Prior to that, he was feeling in his normal state of health. Denied any dizziness. No shortness of breath and focal weakness, visual complaints, or chest pain. He states he did not lose consciousness during the fall. I will note that Mr. Del Toro is a poor historian. His is at the bedside, though she is also a questionable historian. She did not see the fall but was in the next room and got to him quickly afterwards. She found him lying on the ground. He did not lose consciousness. He was not able to get up on his own. He complained of left arm pain. He states that he had no sense of position of his arm. He felt as though his arm was up in the air while it was actually on the ground. His called one of the nurses at [facility] who called EMS. I will also note that the patient was admitted to [facility] on after a fall and a right ankle fracture for which he had an ORIF. He reports he has not fallen since that time. While in the emergency room, the patient had labs, which were unremarkable. He had an x-ray of the left humerus, which showed a comminuted segmental fracture with significant displacement and approximate 45-degree apex of lateral angulation. Orthopedics was consulted by the emergency room. On my exam, the patient is lying in bed. His arm has not yet been splinted. He denies pain at rest. He reports only pain with movement. He has no complaints other than wanting to "go home." Because of the complexity of the fracture and likely need for surgical intervention, the hospitalist team was asked to evaluate for admission. PAST MEDICAL HISTORY: 1. Hyperlipidemia. 2. Alzheimer's disease. 3. Amaurosis fugax. 4. Depression. PAST SURGICAL HISTORY: 1. Cataract removal. 2. Melanoma excision. 3. Unspecified lymph node surgery. HOME MEDICATIONS: 1. Abilify 1 mg p.o. daily. 2. Atorvastatin 10 mg p.o. daily. 3. Bupropion 150 mg p.o. daily. 4. Clobetasol 0.05% topical at bedtime as needed. 5. Vitamin B12 1000 mcg p.o. daily. 6. Aggrenox 25/200 one cap p.o. b.i.d. 7. Aricept 15 mg p.o. daily. 8. Ketoconazole 2% cream 1 application topically daily p.r.n. 9. Namenda 10 mg p.o. at bedtime. 10. Ubidecarenone 200 mg p.o. daily. 11. Venlafaxine 37.5 mg p.o. daily. ALLERGIES: GENTAMICIN and SIMVASTATIN. FAMILY HISTORY: Father from malignant hyperthermia. Mother due to [place]. SOCIAL HISTORY: The patient reports a distant [id number] history. He quit back in his 30s. He denies any alcohol use. Denies any recreational drug use. He lives with his in a cottage at [facility]. The patient's , Saumya , will be his surrogate decision maker in the event he is unable to make his own decisions. REVIEW OF SYSTEMS: An 11-point review of systems was performed and all the pertinent positive and negative findings are in the HPI. All other systems are negative. PHYSICAL EXAMINATION GENERAL: Mr. Del Toro is a well-developed, well-nourished, elderly white male sitting up in bed, in no acute distress. He appears his stated age. VITAL SIGNS: Temp 98.7, heart rate 61, respiratory rate 16, oxygen saturation 100% on room air, and blood pressure 160/77. HEENT: Head is atraumatic, normocephalic. Visual marte are grossly intact. Pupils are pinpoint, though equal, round, and reactive to light and accommodation. Extraocular movements are intact. Oral mucous membranes are moist and without lesions. NECK: Full range of motion. Thyroid not palpable. Trachea at midline. No lymphadenopathy. RESPIRATORY: Symmetrical chest expansion. No chest wall deformities. Lungs clear to auscultation throughout. No rhonchi, wheezes, or rubs. CARDIOVASCULAR: Regular rate and rhythm. S1, S2 present. No murmurs, rubs, or gallops. No JVD. ABDOMEN: Soft, nontender to palpation. Bowel sounds normoactive throughout. No bruits appreciated. No hepatosplenomegaly. EXTREMITIES: Skin warm and smooth bilaterally. No clubbing or cyanosis. There is mild nonpitting edema to the right lower extremity. Pedal pulses are 2 + bilaterally. Radial pulses are 2+ bilaterally. There is moderate nonpitting edema to the left upper arm with associated disfigurement. MUSCULOSKELETAL: Limited range of motion to the left upper extremity. Otherwise, full range of motion throughout. NEUROLOGIC: Awake, alert, and oriented x3. The patient is very forgetful and a poor historian. Cranial nerves II through XII grossly intact, moves bilateral lower extremities and right upper extremity. Hand clamp operator are equal. Sensation is intact to left hand. SKIN: There is an abrasion on the bridge of the nose and significant bruising to the left upper extremity. DIAGNOSTIC STUDIES/LABORATORY DATA: WBC 9.8, RBC 4.49, hemoglobin 13.7, hematocrit 43, platelets 78. INR is 0.9. Sodium 137, potassium 4.4, chloride 107, carbon dioxide 20, BUN 22, creatinine 1.04, glucose 96. Troponin 0.00. Chest x-ray reads as no evidence for acute intrathoracic disease. Fracture of the left humerus. This chest x-ray was personally reviewed. Left humerus x-ray reads as comminuted segmental fracture of the left humerus extending from the surgical neck through the distal diaphysis with significant displacement on approximate 45-degree apex lateral angulation, foreshortening of the upper arm and fusiform soft tissue swelling. No subcutaneous emphysema evident. The humeral head remains located at the glenoid fossa. Normal acromioclavicular joint alignment. Osteoarthritis of the AC joint. Pelvis x-ray reads as no evidence for pelvic fracture. Left shoulder x-ray reads as the same as the humerus x-ray. Brain CT reads as no CT evidence for a traumatic brain injury. Involutional change. Cervical spine CT reads as no CT evidence for traumatic cervical spine injury. EKG shows sinus bradycardia with a rate of 53. This was personally reviewed. There are no ischemic changes. ASSESSMENT AND PLAN: Mr. Del Toro is an 88-year-old male with past medical history of hyperlipidemia, Alzheimer's, amaurosis fugax, and depression who presents to the emergency room today after a mechanical fall and was found to have a displaced, comminuted left humerus fracture. The patient will be admitted inpatient for: 1. Left humerus fracture. The emergency room has already spoken with Dr. Em in consultation who will see the patient tonight. Reportedly, it is likely that he will take the patient to the OR tomorrow. In the meantime, I will hydrate the patient overnight with IV fluids. His pain is currently well managed. I have ordered morphine and Percocet p.r.n. for pain. He will be n.p.o. after midnight. I will hold the patient's Aggrenox at this time in preparation for surgery. 2. Hyperlipidemia. Continue atorvastatin. 3. Alzheimer's disease. Continue Aricept and Namenda. 4. Depression. Continue venlafaxine, Abilify, and bupropion. 5. Fluids, electrolytes, and nutrition: I will hydrate the patient as noted above. He does not need any electrolyte replacements. He is placed on a heart - healthy diet for now with plans for n.p.o. after midnight. 6. Code status: The patient wishes to be a full code. This may need to be readdressed at a later time. 7. DVT prophylaxis: According to the DVT risk assessment, the patient scores a 5 putting him at highest risk. I will not place the patient on heparin at this point due to his platelet count of 78. We will use SCDs for prophylaxis and further DVT prophylaxis can be determined postoperatively. TIME SPENT: Approximately 50 minutes were spent on this admission, greater than half of that time spent with the patient and his obtaining my history , performing my physical exam, and reviewing the plan of care. The case has been reviewed with my attending, Dr. Marlow, who is in agreement with the plan of care. VEDA ROMERO, ARISTEO [id number]/[facility] #: [id number] FAITH
--- NOTE | 2018-09-12 05:13 | CONS ---
CONSULTATION REPORT: DATE OF CONSULT: 09/11/18. REASON FOR CONSULT: Left humerus fracture. HISTORY OF PRESENT ILLNESS: The patient is an 88-year-old man, right hand dominant, who lives at [facility] with his , ambulates without assist and leaves the complex 3 to 4 times per week on an average, who has some Alzheimer's dementia, who sustained a fall this afternoon at approximately 3 p.m. after tripping. The patient tripped on a rug and fell forward. He struck his face and left shoulder. The patient was brought to the [facility] Emergency Department. He denied headache or neck pain. He was noted to have an abrasion about the forehead. He complained of left upper arm pain and had x-rays. These demonstrated a significantly comminuted, displaced proximal humerus fracture and Orthopedic Surgery was consulted. The patient denies any numbness or tingling. The patient provided answers regarding his baseline activity and health that were contradicted by his , so there is a question of how accurate historian the patient is himself secondary to this and the Alzheimer's dementia. The patient's states that he is currently at his baseline mental status in the emergency room now. No prior history of significant left shoulder pain or problems. PAST MEDICAL HISTORY: Hypertension, hypercholesterolemia, angina per emergency room note, but the patient denied and the patient's denied any cardiac problems when I obtained the history, history of cataracts, Alzheimer's dementia , anxiety, depression. Melanoma, treated with radiation. PAST SURGICAL HISTORY: Excision of cataracts bilateral, lymph node excision for melanoma. MEDICATIONS: 1. Atorvastatin. 2. Ceramides topical cream b.i.d. 3. Clobetasol topically p.r.n. 4. Donepezil. 5. Ketoconazole topically daily p.r.n. 6. Memantine p.o. q.h.s. 7. Venlafaxine. 8. Ubidecarenone. ALLERGIES: GENTAMICIN (unknown), SIMVASTATIN (unknown). SOCIAL HISTORY: The patient is retried. 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 He lives with his at the [facility]. The patient is a former smoker who used to smoke one pack per day. The patient has dementia. REVIEW OF SYSTEMS: No fever, sweats, chills. No current chest pain, palpitations, shortness of breath or cough. No abdominal pain, nausea, vomiting. No headache. No neck pain. PHYSICAL EXAM: Vital Signs: BMI 23.5. The patient is 5 feet 7 inches and 150 pounds. Most recent vitals at 7:59 p.m. heart rate of 56, blood pressure of 112 /59, oxygen saturation 88% on room air. Previously at 7 p.m. 100% on room air. Respiratory rate 21 beats per minute. No acute distress. The patient is lying supine on the stretcher in the emergency room bay. The patient has a small abrasion about the base of his forehead. No active bleeding there. The patient has a soft tissue swelling, significant about the left shoulder and upper arm. Some minimal swelling now about the forearm. There is one defect in the skin noted. Emergency room staff had told me about this. There is a small leaflet, perhaps 5 mm long. It was L shaped. I opened this up to look for a connection with deep. I saw a base to this in the superficial subcutaneous tissue. I saw no connection deeper. It makes this more likely to be a skin tear from exterior. The patient has no other skin defects. The skin tear was noted to be about the anterolateral mid upper arm. I did a neurovascular exam distally. Intact radial and ulnar artery pulses, brisk, 3+. The patient had intact motor and sensation to all peripheral nerves. At first, the patient had weakness with thumb extension, but then when I asked him to do it several minutes later, he had no weakness with thumb extension. I look in particular at PIN and superficial radial nerve innervated motor and sensory function and these were fully intact. LABORATORY DATA: Hematocrit 43. Chemistries and CBC ordered as well as PT/INR by emergency room staff. IMAGING: Multiple x-rays of the left shoulder and left upper arm were obtained in the emergency room prior to my arriving. There appears to be a comminuted displaced angulated left proximal humerus fracture with an intercalary comminuted segment. The proximal most extent of the fracture appears at the surgical neck. There may be a large medial extension of the humeral head which would kell well for this patient and his blood supply of the bone. There is an intercalary segment that is split into two pieces. Those are displaced. There is then a distal fracture line about midway down the humeral shaft. The most significant angulation is at that distal fracture site. There is apex lateral and apex posterior angulation at that fracture line. ASSESSMENT: Displaced comminuted left proximal humerus and humeral shaft fracture. PLAN: 1. Given the amount of displacement as well as the involvement of both the surgical neck and the humeral shaft, I told the patient and his that it is likely that this will require surgery. 2. For provisional management, comfort, avoidance of soft tissue difficulties and minimization of swelling, I performed a reduction maneuver and splinting. Verbal consent, sterile technique, tolerated well. The patient was given 2 mg of IV morphine. We allowed this to take effect. I have placed a small 4x4 dressing over the skin defect. I then performed some longitudinal traction and manipulation with a valgus and apex anterior position to the humeral fragments. I next placed a coaptation splint with Ortho-Glass, 5-inch. I wrapped that with an Elbert bandage. I next placed the patient in a swathe that went around his neck to his wrist. In this way, gravity can help with the reduction. 3. The patient will be admitted to Dr. Marlow and the hospitalist service given multiple medical problems. 4. The patient will be made n.p.o. after midnight tonight for possible surgery tomorrow. 5. Depending on the hardware availability, surgeon availability and the operating room availability, the patient's surgery if it occurs will occur or Sunday, tomorrow or the following day. 6. Given the appearance of the wound and the skin, I see no compelling evidence for this being an open fracture. There was a bottom to that site. There was an L- shape to the tear consistent with the skin tearing on the surface, as well the spike of bone of the more distal fragment was pointed posterior, which was in many ways the opposite direction of this anterior or anterolateral skin defect. Therefore, I do not think that this surgery has to occur within 24 hours or tomorrow morning. I would be comfortable having it done on Sunday. However, just in case, we will certainly err on the side of caution and have the patient started on IV antibiotics, Ancef 1 g IV q.8 hours. 7. I spoke briefly to the patient and his about the surgery. She will have to consent for this surgery given the patient's dementia. I will let them known about the timing of the surgery tonight or tomorrow morning. The patient' s was given my cell phone, telephone number. 8. The patient will need to be optimized and cleared for surgery by the hospitalist service and Dr. Marlow. [id number]/[facility] #: [id number] FAITH
[2018-09-12 06:09] LABS: ABS Basophils 0 10^3/ul (0-0.2); ABS Eosinophils 0 10^3/ul (0-0.6); ABS Monocytes 0.7 10^3/ul (0-0.8); ABS Neutrophils 6.4 10^3/ul (1.5-7.7); ABS Nucleated RBC 0 10^3/ul; Eosinophil % 0.4 % (0-6); Hematocrit 36 % (42-52); Hemoglobin 12.2 g/dl (14.0-18.0); Lymphocyte % 12.1 % (25-47); Mean Corpuscular HGB Conc 34 g/dl (31-36); Mean Corpuscular Hemoglobin 31 pg (27-31); Mean Corpuscular Volume 91 fL (80-94); Mean Platelet Volume 7.4 um3 (7.4-10.4); Nucleated Red Blood Cells % 0; Platelet Count 203 10^3/ul (150-450); Red Blood Count 3.95 10^6/ul (4.00-5.40); Red Cell Distribution Width 14 % (10.5-15); White Blood Count 8.2 10^3/ul (3.5-10.8)
--- NOTE | 2018-09-12 08:07 | RAD ---
Indication: Post reduction of fractured humerus Comparison: Similar radiograph acquired at 1656 hours Technique: 4 views of the left humerus were obtained at 2017 hours. Report: Again seen is a comminuted fracture involving the proximal metaphysis and diaphysis of the left humerus. There has been interval reduction in the degree of varus angulation relative to the most recent radiograph. There is approximately 12 degrees of varus angulation. The remaining visualized bones are otherwise intact. IMPRESSION: Interval reduction in the degree of varus angulation at the comminuted proximal left humeral fracture. R1NF
[2018-09-12] MEDS ORDERED: Donepezil TAB* 5 MG PO SCH ×2 (09:00)
[2018-09-12] MEDS: Venlafaxine EXT RELEASE CAP* 37.5 MG PO SCH (09:02)
[2018-09-12] MEDS: Donepezil TAB* 5 MG PO SCH (09:03)
[2018-09-12] MEDS: Docusate CAP* 100 MG PO SCH ×2 (09:03→20:30)
[2018-09-12] MEDS: BuPROPion XL* 150 MG TAB.XL PO SCH (09:03)
[2018-09-12] MEDS: Cyanocobalamin TAB* 500 MCG PO SCH (09:04)
[2018-09-12] MEDS: ARIPiprazole TAB* 2 MG PO SCH (09:34)
--- NOTE | 2018-09-12 15:15 | PN ---
Progress Note - Progress Note Date of Service: 09/12/18 SOAP: Subjective: []Patient seen and examined at bedside. His Saumya is present. He reports pain with any movement of the left upper extremity. Objective: []General: NAD, confused LUE: coaptation splint in place. forearm, hand and digits warm and compressible. Capillary refill brisk distally. Sensation intact throughout the left hand. Able to flex and extend wrist and all 5 digits. Thumbs up and okay sign intact. Patient with greater ability to comprehend instruction when asked to do both hands at once and demonstration given. Assessment: []Left proximal humerus fracture Plan: [] NWB LUE Coaptation splint to remain in place. Possibly to OR tomorrow with Dr Em. Saumya asks she be called with any operative plans at [phone] or [phone] I have made him NPO after midnight in light of tentative OR plans. Please provide a diet to him tomorrow if no surgical plan Laboratory Last Values WBC 8.2 10^3/ul (3.5-10.8) 09/12/18 05:09 RBC 3.95 10^6/ul (4.00-5.40) L 09/12/18 05:09 Hgb 12.2 g/dl (14.0-18.0) L 09/12/18 05:09 Hct 36 % (42-52) L 09/12/18 05:09 MCV 91 fL (80-94) 09/12/18 05:09 MCH 31 pg (27-31) 09/12/18 05:09 MCHC 34 g/dl (31-36) 09/12/18 05:09 RDW 14 % (10.5-15) 09/12/18 05:09 Plt Count 203 10^3/ul (150-450) 09/12/18 05:09 MPV 7.4 um3 (7.4-10.4) 09/12/18 05:09 Neut % (Auto) 78.3 % (38-83) 09/12/18 05:09 Lymph % (Auto) 12.1 % (25-47) L 09/12/18 05:09 [place] % (Auto) 8.7 % (0-7) H 09/12/18 05:09 Eos % (Auto) 0.4 % (0-6) 09/12/18 05:09 Baso % (Auto) 0.5 % (0-2) 09/12/18 05:09 Absolute Neuts (auto) 6.4 10^3/ul (1.5-7.7) 09/12/18 05:09 Absolute Lymphs (auto) 1.0 10^3/ul (1.0-4.8) 09/12/18 05:09 Absolute Monos (auto) 0.7 10^3/ul (0-0.8) 09/12/18 05:09 Absolute Eos (auto) 0 10^3/ul (0-0.6) 09/12/18 05:09 Absolute Basos (auto) 0 10^3/ul (0-0.2) 09/12/18 05:09 Absolute Nucleated RBC 0 10^3/ul 09/12/18 05:09 Nucleated RBC % 0 09/12/18 05:09 Hem Pathologist Commnt 09/11/18 17:30 INR (Anticoag Therapy) 1.00 (0.77-1.02) 09/12/18 05:09 Sodium 138 mmol/L (135-145) 09/12/18 05:09 Potassium 4.2 mmol/L (3.5-5.0) 09/12/18 05:09 Chloride 107 mmol/L (101-111) 09/12/18 05:09 Carbon Dioxide 25 mmol/L (22-32) 09/12/18 05:09 Anion Gap 6 mmol/L (2-11) 09/12/18 05:09 BUN 23 mg/dL (6-24) 09/12/18 05:09 Creatinine 0.91 mg/dL (0.67-1.17) 09/12/18 05:09 Est GFR ( Amer) 95.6 (>60) 09/12/18 05:09 Est GFR (Non-Af Amer) 79.0 (>60) 09/12/18 05:09 BUN/Creatinine Ratio 25.3 (8-20) H 09/12/18 05:09 Glucose 106 mg/dL (70-100) H 09/12/18 05:09 Calcium 8.1 mg/dL (8.6-10.3) L 09/12/18 05:09 Total Bilirubin 0.40 mg/dL (0.2-1.0) 09/11/18 17:30 AST 15 U/L (13-39) 09/11/18 17:30 ALT 9 U/L (7-52) 09/11/18 17:30 Alkaline Phosphatase 71 U/L (34-104) 09/11/18 17:30 Troponin I 0.00 ng/mL (<0.04) 09/11/18 17:30 Total Protein 6.0 g/dL (6.4-8.9) L 09/11/18 17:30 Albumin 3.5 g/dL (3.2-5.2) 09/11/18 17:30 Globulin 2.5 g/dL (2-4) 09/11/18 17:30 Albumin/Globulin Ratio 1.4 (1-3) 09/11/18 17:30 Vital Signs Temp 98.4 F 09/12/18 14:49 Pulse 67 09/12/18 14:49 Resp 15 09/12/18 14:49 BP 116/65 09/12/18 14:49 Pulse Ox 97 09/12/18 14:49 Intake & Output 09/11/18 09/12/18 09/12/18 18:59 06:59 18:59 Intake Total 0 1490 Output Total 490 Balance 0 1000 Weight 150 lb 160 lb 3.2 oz Intake: Oral 0 1490 Output: Urine 490 Other: Estimated Void Large Small # Bowel Movements 0 0 # Voids 1 1 2 of 3 <Ayana Marin - Last Filed: 09/12/18 15:16> - Progress Note SOAP: Subjective: I saw the patient and spoke to his by telephone. The patient's and I spoke at some length about treatment options, non- operative (consisting of a splint and then Smith brace) versus operative ( ORIF with a plate and screws) as well as the pros and cons of each. Each component part (surgical neck proximal humerus and humeral shaft fracture with less than 30 degrees angulation) would be treated in the patient clearly non-operatively. Given the fractures in both locations, an argument can be made for surgery. Objective: Splint in place, swathe from neck to forearm reapplied. NVID Brusing left forearm and hand NVID Pulses RA, UA intact[] Assessment: Fx as above Plan: - Discussed with patient's that we would get xrays the morning of 09/13 to see how gravity and time are affecting the reduction - Tentative plan was for a trial of coaptation splint with surgery if he fails that after 1-4 weeks. - I said that I would review xrays and talk with patient's on the morning of 09/13 between my cases. - Still NPO after midnight and Aggrenox held just in case of surgery 09/13 <Jamari Em - Last Filed: 09/13/18 08:18>
[2018-09-12] MEDS: NS 0.9% 1000 ML* 1,000 ML IV SCH (15:46)
[2018-09-12] MEDS: Atorvastatin* 10 MG TAB PO SCH (20:30)
[2018-09-12] MEDS: Memantine TAB* 10 MG PO SCH (20:30)
[2018-09-13] MEDS: BuPROPion XL* 150 MG TAB.XL PO SCH (07:07)
[2018-09-13] MEDS: Docusate CAP* 100 MG PO SCH (07:07)
[2018-09-13] MEDS: Donepezil TAB* 5 MG PO SCH (07:07)
[2018-09-13] MEDS: Cyanocobalamin TAB* 500 MCG PO SCH (07:07)
[2018-09-13] MEDS: ARIPiprazole TAB* 2 MG PO SCH (07:07)
[2018-09-13] MEDS: Venlafaxine EXT RELEASE CAP* 37.5 MG PO SCH (07:08)
[2018-09-13 08:41] VITALS: BP 127/50
--- NOTE | 2018-09-13 09:02 | RAD ---
Indication: Left humerus fracture 2 views of left humerus demonstrates comminuted fracture of the midshaft of the left humerus with medial angulation. Fracture fragments appears similar in alignment. IMPRESSION: Comminuted fracture midshaft of the left humerus which is not significantly changed since September 11, 2018.
--- NOTE | 2018-09-13 15:00 | TRS ---
TRANSFER SUMMARY: DATE OF ADMISSION: 09/11/18 DATE OF TRANSFER: 09/13/18 TRANSFER DIAGNOSES: 1. Comminuted fracture of the left humerus. 2. Alzheimer's disease. 3. Depression. 4. Hyperlipidemia, treated. 5. History of transient ischemic attack. 6. History of right ankle fracture, 01/27/18. HISTORY: Hayden Del Toro is an 88-year-old man, who fell at home fracturing his left humerus. Please see the dictated admission note for details of the present illness, past medical history, family history, social history, review of systems, and physical examination. LABORATORY DATA: CBC: WBC 9.8, H and H 15.7/43, MCV 96, PLT 78,000. Repeat CBC on 09/12/18: WBC 8.2, H and H 12.2/36, MCV 91, PLT 203,000. INR 0.90, 1.0. Chemistries: Sodium 137, potassium 4.4, chloride 107, CO2 of 20, BUN and creatinine 22/1.04, glucose 96. Rest of the comprehensive metabolic panel was within normal limits. Troponin was 0. Repeat BMP was essentially unchanged. IMAGING: Chest x-ray showed no acute disease. Humerus x-ray showed a comminuted fracture of the left humerus. Pelvis x-ray showed no pelvic fracture. Shoulder x-ray, 09/11/18, showed fracture of the left humerus, osteoarthritis of the AC joint. Brain CT showed no CT evidence for traumatic brain injury, involutional change was noted. Cervical spine CT: No cervical spine trauma. Upper extremity CT showed multipart fracture diaphysis of the humerus with moderate override and medial angulation, proximal extension of fracture line to the medial surgical neck of the humerus. Humerus x-ray, 09/13/18, was unchanged. HOSPITAL COURSE: The patient was admitted from the emergency room. In the emergency room, the patient was afebrile with stable vital signs. EKG showed sinus bradycardia, no acute changes. Orthopedics was consulted. Initially, it was felt that he would need surgery, then it was decided because of his age and difficulty following directions that he was not a surgical candidate. It was felt that his arm might heal without surgery and that if it did not, Dr. Em , orthopedist, felt that surgery could be done later. He recommended discharge with sling and then next week he would see him and put him in a brace. During his hospitalization, he was treated with his usual medications with the exception of Aggrenox, which was held with anticipation of surgery. He was confused during his hospitalization. He got Percocet for pain. DISCHARGE MEDICATIONS: At the time of discharge, he is to be on the following medications: 1. Aripiprazole 1 mg daily. 2. Percocet 5/325 mg 1 q. 4h. p.r.n. pain. 3. Bupropion 150 mg XL daily. 4. Memantine 10 mg at h.s. 5. Donepezil 15 mg q.h.s. 6. CoQ10 of 200 mg daily. 7. Aggrenox 1 cap b.i.d. 8. CeraVe cream to his legs daily. 9. Maalox 30 cc q. 6h. p.r.n. indigestion. 10. Tylenol 650 q. 4h. p.r.n. while pain. 11. Venlafaxine 375 mg p.o. daily. 12. Lipitor 10 mg p.o. daily. DISCHARGE INSTRUCTIONS: He should get physical therapy/occupational therapy. He is to follow up with Dr. Em on 09/17/18. I will be his attending physician at [facility] [place]. DIET: Regular. ACTIVITY: Up with assistance. [id number]/[facility] #: [id number] FAITH
== END 2018-09-13 15:26 | DRG 563 ==
LOC: ED 15:56 → MED 19:10
PROVIDERS: ADMIT Internal Medicine; ATTEND Internal Medicine Geriatric Medicine
PROC: 2W3BX1Z Immobilization of Left Upper Arm using Splint (ICD-10-PCS; principal; 2018-09-11)
DX: S42.352A Displaced comminuted fracture of shaft of humerus, left arm, initial encounter for closed fracture (principal); G45.3 Amaurosis fugax; S42.212A Unspecified displaced fracture of surgical neck of left humerus, initial encounter for closed fracture; G30.9 Alzheimer's disease, unspecified; F02.80 Dementia in other diseases classified elsewhere, unspecified severity, without behavioral disturbance, psychotic disturbance, mood disturbance, and anxiety; F32.9 Major depressive disorder, single episode, unspecified; E78.5 Hyperlipidemia, unspecified; M19.012 Primary osteoarthritis, left shoulder; R00.1 Bradycardia, unspecified; W01.0XXA Fall on same level from slipping, tripping and stumbling without subsequent striking against object, initial encounter; R40.2252 Coma scale, best verbal response, oriented, at arrival to emergency department; R40.2362 Coma scale, best motor response, obeys commands, at arrival to emergency department; R40.2142 Coma scale, eyes open, spontaneous, at arrival to emergency department; I10 Essential (primary) hypertension; F41.9 Anxiety disorder, unspecified; Z86.73 Personal history of transient ischemic attack (TIA), and cerebral infarction without residual deficits; Z85.820 Personal history of malignant melanoma of skin; Z98.42 Cataract extraction status, left eye; Z88.1 Allergy status to other antibiotic agents; Z88.8 Allergy status to other drugs, medicaments and biological substances; Z92.3 Personal history of irradiation; Z82.49 Family history of ischemic heart disease and other diseases of the circulatory system; Z87.891 Personal history of nicotine dependence; Y92.009 Unspecified place in unspecified non-institutional (private) residence as the place of occurrence of the external cause; Z98.41 Cataract extraction status, right eye
CPT/HCPCS: 36415; 70450; 71045; 72125; 72170; 80048; 80053; 84484; 85025; 85060; 85610; 90715; 93005; 99285; A9270-GY; G8978-GP-CJ; G8979-GP-CH; G8980-GP-CJ; G8987-GO-CM; G8988-GO-CJ; J0690; J2270

== ENCOUNTER 2021-07-13 10:08 | Observation (INO) ==
[2021-07-13 12:16] LABS: ABS Basophils 0.1 10^3/ul (0-0.2); ABS Eosinophils 0.1 10^3/ul (0-0.6); ABS Lymphocytes 1.5 10^3/ul (1.0-4.8); ABS Monocytes 0.7 10^3/ul (0-0.8); ABS Neutrophils 12.1 10^3/ul (1.5-7.7); Hematocrit 42 % (42-52); Hemoglobin 13.9 g/dL (14.0-18.0); Lymphocyte % 10.5 %; Mean Corpuscular HGB Conc 34 g/dL (31-36); Mean Corpuscular Hemoglobin 31 pg (27-31); Mean Corpuscular Volume 93 fL (80-94); Mean Platelet Volume 6.6 fL (7.4-10.4); Platelet Count 321 10^3/uL (150-450); Red Blood Count 4.44 10^6 /uL (4.18-5.48); Red Cell Distribution Width 13 % (10-15); White Blood Count 14.6 10^3/uL (3.5-10.8)
[2021-07-13 12:27] LABS: INR 1.08 (0.86-1.15)
[2021-07-13 12:37] LABS: Albumin 3.7 g/dL (3.2-5.2); Albumin/Globulin Ratio 1.2 (1-3); EGFR African American 79.6 (>60); EGFR Non-African American 65.8 (>60); Potassium 4.3 mmol/L (3.5-5.0); Total Bilirubin 0.5 mg/dL (0.2-1.0); Total Protein 6.7 g/dL (6.4-8.9)
[2021-07-13] MEDS ORDERED: Morphine 4 MG/ML VIAL (1 ml) IV ONE (13:24)
[2021-07-13] MEDS ORDERED: Magnesium Hydroxide LIQ 30 ML UDC PO PRN (14:22)
[2021-07-13] MEDS ORDERED: Morphine 2 MG/ML SYRINGE IV PRN (14:26)
[2021-07-13] MEDS ORDERED: NS 0.9% 1000 ml BAG 1,000 ML IV SCH (14:30)
[2021-07-13 15:24] LABS: Urine Appearance Cloudy; Urine Bilirubin Negative (Negative); Urine Blood Negative (Negative); Urine Color Yellow; Urine Glucose Negative (Negative); Urine Ketones 1+ (Negative); Urine Nitrite Negative (Negative); Urine Protein Negative (Negative); Urine Specific Gravity 1.023 (1.002-1.030); Urine Urobilinogen Negative (Negative)
[2021-07-13] MEDS ORDERED: Senna TAB 8.6 mg TAB PO SCH (21:00)
[2021-07-13] MEDS ORDERED: Donepezil HCL 10 mg TAB (NF) PO SCH (21:00)
[2021-07-13] MEDS ORDERED: Heparin 5000 UNITS/ML 1 mL VIAL SUBCUT SCH (22:00)
[2021-07-14 06:12] LABS: ABS Basophils 0.1 10^3/ul (0-0.2); ABS Eosinophils 0.1 10^3/ul (0-0.6); ABS Lymphocytes 1.4 10^3/ul (1.0-4.8); ABS Monocytes 1.4 10^3/ul (0-0.8); ABS Neutrophils 10.2 10^3/ul (1.5-7.7); Eosinophil % 0.5 %; Hematocrit 36 % (42-52); Hemoglobin 12.1 g/dL (14.0-18.0); Lymphocyte % 10.9 %; Mean Corpuscular HGB Conc 34 g/dL (31-36); Mean Corpuscular Hemoglobin 31 pg (27-31); Mean Corpuscular Volume 93 fL (80-94); Mean Platelet Volume 6.7 fL (7.4-10.4); Platelet Count 304 10^3/uL (150-450); Red Blood Count 3.88 10^6 /uL (4.18-5.48); Red Cell Distribution Width 13 % (10-15); White Blood Count 13.2 10^3/uL (3.5-10.8)
[2021-07-14 06:21] LABS: INR 1.17 (0.86-1.15)
[2021-07-14 06:28] LABS: Calcium 8.6 mg/dL (8.6-10.3); EGFR African American 68.3 (>60); EGFR Non-African American 56.5 (>60)
[2021-07-14] MEDS ORDERED: Perflutren Lipid Microsphere 3 ML VIAL ONE (08:18)
[2021-07-14] MEDS ORDERED: Venlafaxine XR 75 mg PO SCH (09:00)
[2021-07-14 11:21] VITALS: BP 132/92
== END 2021-07-14 13:15 | DRG 536 ==
LOC: ED 10:08 → INTOOBSV 14:19 → SSU 14:19
PROVIDERS: ADMIT Hospitalist; ATTEND Hospitalist